=== PATIENT | female | born 1930 | race Caucasian/White ===

== ENCOUNTER → 2017-05-03 | Outpatient (CLI) | payer MEDICARE ==
[2013-11-01 16:02] VITALS: BMI 26.4
[~2017-05-03] MED LIST: ALL100 PO; BRIM5DRO7 OD; CALC-422 PO; CALC-852 PO; CALC500T6 PO; CEPH500C24 PO; CHOL10005 PO; CHOL200074 PO; CLIN-75 PO; COL0.6 PO; CRAN500T2; CYAN100088 PO; CYAN250T15 PO; DICL100G39 TOP; ENOX40DI8 SC; EZE10 PO; HCTZ25; HYDR-2966 PO; HYPR15DR27 OP; IBUP200C71 PO; LANS30CA70 PO; LORA-630 PO; LUTE6CAP11 PO; MEL7.5; MELO-205 PO; MIRT-22 PO; MOD PO; NAP250 PO; NIF10 PO; OMEG-24 PO; OMEG500C7 PO; OMEP-137 PO; OMEP-153 PO; PANT40TA65 PO; POT25TAB11 PO; POTA-23 PO; POTA20TA85 PO; SIM10 PO; SODCLOD OD; SPIR25TA78; SPIR25TA78 PO; TOBROD *; TRA50; TRA50 PO; TRAM-420 PO; TRAZ-156 PO; TRAZ50 PO; VERS120 PO; VIT1CAPS32 PO; VITA-200 PO; VITA200C22 PO; [UNRECOGNIZED DRUG - CODE] OP; [UNRECOGNIZED DRUG - CODE] PO; [UNRECOGNIZED DRUG - CODE] PO
== END ==
LOC: LAB 14:00
PROVIDERS: ATTEND Family Medicine
DX: S37.009A Unspecified injury of unspecified kidney, initial encounter (principal)
CPT/HCPCS: 36415; 82310; 82374; 82435; 82565; 82947; 84132; 84295; 84520